=== PATIENT | female | born 1950 | race Caucasian/White ===

== ENCOUNTER → 2017-11-22 | Outpatient (CLI) | payer OTHER, MEDICARE | LOC: CAT 13:23 | DX: I62.00 Nontraumatic subdural hemorrhage, unspecified (principal) ==

== ENCOUNTER → 2019-08-30 | Outpatient (CLI) | payer OTHER, MEDICARE | LOC: MRI 14:47 | PROVIDERS: ATTEND Family Medicine | DX: M51.25 Other intervertebral disc displacement, thoracolumbar region (principal); M54.41 Lumbago with sciatica, right side; G89.29 Other chronic pain; M47.817 Spondylosis without myelopathy or radiculopathy, lumbosacral region; M48.061 Spinal stenosis, lumbar region without neurogenic claudication; M25.78 Osteophyte, vertebrae ==